=== PATIENT | female | born 1980 | race Caucasian/White ===

== ENCOUNTER 2017-01-02 17:13 | Emergency (ER) | payer OTHER ==
[2017-01-02 17:30] VITALS: BP 118/72; PULSE 87; RESP 16; TEMP 97.7; O2SAT 98
--- NOTE | 2017-01-02 18:27 | UCPHY ---
H & P Time Seen by Provider: 01/02/17 17:54 Patient Type: New HPI/ROS: 36-year-old female with snow boarding at [employer] and while getting off the chair left fell backwards hitting her hand. Review of systems General no fever no chills no weakness HEENT no eye pain no eye discharge. No eye redness, no sore throat Respiratory no cough, no shortness of breath Cardiac no chest pain, no peripheral edema GI no abdominal pain, no diarrhea, no constipation, no nausea, no vomiting no flank pain, no hematuria, no dysuria Musculoskeletal no myalgias, positive joint pain Heme no easy bruising, no easy bleeding Endo no polyuria, no polydipsia Skin no rashes, no pruritus Neuro no syncope, no dizziness, no headaches Psych is no suicidal ideation, no homicidal ideation Past Medical/Surgical History: Noncontributory Social History: Alcohol socially denies drug use Smoking Status: Never smoked Physical Exam: 36-year-old female Alert and oriented in no acute distress nontoxic appearance, afebrile Atraumatic normocephalic Neck no JVD Lungs clear to auscultation, no respiratory distress Heart regular rate and rhythm Extremities no cyanosis clubbing edema Right hand Right thumb with ecchymosis and swelling extending to thenar eminence, decreased range of motion secondary to swelling Good capillary refill, sensation intact No snuffbox tenderness, no wrist tenderness, full range of motion at wrist in all other digits with the exception of the thumb limited range of motion secondary to swelling, pain Constitutional: Initial Vital Signs Temperature (C) 36.5 C 01/02/17 17:28 Heart Rate 87 01/02/17 17:28 Respiratory Rate 16 01/02/17 17:28 Blood Pressure 118/72 01/02/17 17:28 O2 Sat (%) 98 01/02/17 17:28 O2 Delivery Mode Room Air Allergies/Adverse Reactions: No Known Allergies Allergy (Unverified 01/02/17 17:28) Home Medications: Medication Instructions Recorded NK [No Known Home Meds] 01/02/17 Medical Decision Making - Diagnostics Imaging: Thumb x-ray negative for fracture ED Course/Re-evaluation: Patient seen and evaluated for swelling to thumb and right thenar eminence after a fall while snowboarding X-ray negative Impression Right thumb contusion, right thenar eminence contusion No evidence of wrist involvement, no other digits involved Plan Right thumb spica If not improving follow up with hand surgeon Departure - Departure Disposition: Home, Routine, Self-Care Clinical Impression: Contusion of right thumb Condition: Good Instructions: Finger Sprain (ED), Hematoma (ED) Referrals: NONE *PRIMARY CARE P,. [Primary Care Provider] - As per Instructions Sandeep Wray MD [Medical Doctor] - As per Instructions - PQRS PQRS Measurement: na
== END 2017-01-02 18:49 | disposition home or self-care (01) ==
LOC: CED 17:13
DX: S60.011A Contusion of right thumb without damage to nail, initial encounter (principal); W17.89XA Other fall from one level to another, initial encounter; Y93.23 Activity, snow (alpine) (downhill) skiing, snowboarding, sledding, tobogganing and snow tubing
CPT/HCPCS: 73140-PO; 99202-PO; G0463-PO